=== PATIENT | male | born 1995 | race Caucasian/White ===

== ENCOUNTER → 2021-05-01 | Outpatient (CLI) | payer OTHER ==
--- NOTE | 2021-05-01 09:05 | XR ---
Orbits HISTORY: Metal in eye 3 views of the orbits Bone mineralization is maintained. Paranasal sinuses are well aerated. No radiopaque foreign body is evident. IMPRESSION: No radiopaque foreign body is evident within the orbits
--- NOTE | 2021-05-01 10:32 | MR ---
EXAMINATION TYPE: MR tspine/lspine wo con DATE OF EXAM: 05/01/2021 COMPARISON: Plain film 04/06/2021, CT from outside institution 02/11/2021 HISTORY: Prior LSP xrays on synapse, no prior TSP. back injury 5 months ago, pain left middle back TECHNIQUE: Multiplanar, multisequence imaging of the thoracic and lumbar spine is performed without I V contrast. FINDINGS: Thoracic spine MRI: Thoracic vertebral bodies show preserved height and alignment. There is a gentle spinal curvature. There is some loss of disc height and signal at T6-7, T7-8, T8-9. There is no signi ficant spinal stenosis or foraminal encroachment. Thoracic cord signal is maintained. There is left-s ided hydronephrosis as noted on prior CT. Posterior lung bases show no pleural effusion. T5-6: Small posterior right paracentral disc herniation causes mild anterolateral mass effect on the thecal sac. T6-7 there is a right posterior paracentral disc herniation present causing possible contact anterola terally on the thoracic cord. T7-8: A larger right posterior paracentral disc herniation contacts anterior thoracic cord, there may be some slight deformity present. T8-9: There is a left posterior paracentral disc herniation contacting the thoracic cord and likely c ausing some local mass effect. T9-10: Right lateral extension of disc protrusion encroaches minimally on the inferior aspect of the right neural foramen. Remaining levels are within normal limits within the thoracic spine. IMPRESSION: Multilevel disc herniations as described. Lumbar spine MRI:. Sagittal images of the lumbar spine show vertebral body heights and alignment to appear satisfactory. There is multilevel Schmorl's node formation. Loss of disc height signal is present at L4-5, L3-4. T he conus is normal noted at T12-L1. Axial images show no focal disc disease at L5-S1 aside for some facet arthropathy, there is motion pr esent. L4-5: There is a posterior broad-based disc bulge causing anterior mass effect on the thecal sac. Fac et arthropathy with hypertrophy ligamentum flavum is noted. There is only mild spinal stenosis. Circu mferential extension endplate disc complex encroaches minimally on the inferior aspect of the foramin a bilaterally. L3-4: Posterior extension endplate disc complex is present, there is posterior broad-based disc bulge causing anterior mass effect on the thecal sac, mild to moderate spinal stenosis. Circumferential ex tension endplate disc complex encroaches on the inferior aspect of the foramina bilaterally. There is some facet arthropathy change. Some posterior lateral mass effect on the thecal sac is noted. L2-3: Posterior broad-based disc bulge is mild. There is some mild facet arthropathy. No significant spinal stenosis or foraminal encroachment. L1-2: Mild facet arthropathy. No spinal stenosis or significant disc herniation. Left-sided hydroneph rosis is noted incidentally as on thoracic spine report. IMPRESSION: Degenerative disc disease as described. Left-sided hydronephrosis.
== END | disposition home or self-care (01) ==
LOC: RADMRIMAIN 08:16
PROVIDERS: ATTEND Orthopaedic Surgery
DX: M51.24 Other intervertebral disc displacement, thoracic region (principal); M51.36 Other intervertebral disc degeneration, lumbar region; Z01.89 Encounter for other specified special examinations
CPT/HCPCS: 70030; 72146; 72148

== ENCOUNTER 2021-06-12 19:44 | Inpatient (IN) | payer MEDICAID, OTHER ==
--- NOTE | 2021-06-12 21:08 | ED ---
Psych HPI <Abdirashid Garner - Last Filed: 06/12/21 21:40> - General Source: patient, family Mode of arrival: ambulatory <Sheryl Salas - Last Filed: 06/15/21 01:20> - General Stated Complaint: Mental Health - History of Present Illness Initial Comments: Lj is a 25yo presents the emergency department today for evaluation of depression and suicidal thoughts. Psychiatric history doesn't follow with any mental health specialist outpatient. Patient did have a back injury earlier this year and is suffering from chronic pain. Patient states that he she's been having thoughts of killing himself, his plan would be to cut himself. Patient reports he's and 20 out of 10 pain in his back and this is chronic. (Sheryl Salas) - Related Data Home Medications Medication Instructions Recorded Confirmed Gabapentin 300 mg PO TID 06/12/21 06/12/21 Meloxicam 15 mg PO DAILY 06/12/21 06/12/21 Allergies Allergy/AdvReac Type Severity Reaction Status Date / Time No Known Allergies Allergy Verified 06/12/21 22:14 Review of Systems ROS Other: All systems not noted in ROS Statement are negative. <Abdirashid Garner - Last Filed: 06/12/21 21:40> ROS Other: All systems not noted in ROS Statement are negative. <Sheryl Salas - Last Filed: 06/15/21 01:20> ROS Statement: Those systems with pertinent positive or pertinent negative responses have been documented in the HPI. Past Medical History Past Medical History: No Reported History History of Any Multi-Drug Resistant Organisms: None Reported Past Surgical History: No Surgical Hx Reported Past Psychological History: No Psychological Hx Reported Smoking Status: Current every day smoker Past Alcohol Use History: None Reported Past Drug Use History: Marijuana - Past Family History Mother Family Medical History: Hypertension <Sheryl Salas - Last Filed: 06/15/21 01:20> General Exam Limitations: no limitations <Sheryl Salas - Last Filed: 06/15/21 01:20> - General Exam Comments Initial Comments: Physical Exam GENERAL: Patient is well-developed and well-nourished. Patient is nontoxic and well-hydrated and is in no distress. HENT: Normocephalic, Atraumatic. EYES: PERRL, EOMI PULMONARY: Unlabored respirations. CARDIOVASCULAR: RRR Warm and well perfused extremities ABDOMEN: Non-distended SKIN: No rashes or bruising : Deferred NEUROLOGIC: Alert and oriented Normal speech Normal gait MUSCULOSKELETAL: Moving all extremities with no apparent injury PSYCHIATRIC Flat affect, delayed responses, suicidal thoughts and plan (Sheryl Salas) Course Vital Signs 06/12/21 21:03 Temperature 98.9 F Pulse Rate 96 Respiratory 18 Rate Blood Pressure 136/85 O2 Sat by Pulse 98 Oximetry Medical Decision Making - Lab Data Result diagrams: 06/14/21 06:47 06/14/21 06:47 <Sheryl Salas - Last Filed: 06/15/21 01:20> - Medical Decision Making Patient was seen and evaluated history is obtained from patient, patient is medically cleared for evaluation by psychiatric services. Pt willing to sign in voluntarily for psychiatric medical care (Sheryl Salas) - Lab Data Lab Results 06/12/21 06/12/21 06/12/21 Range/Units 21:22 21:23 21:23 Urine Color Yellow Urine Appearance Clear (Clear) Urine pH 6.5 (5.0-8.0) Ur Specific [place] 1.029 (1.001-1.035) Urine Protein 1+ H (Negative) Urine Glucose (UA) 4+ H (Negative) Urine Ketones Trace H (Negative) Urine Blood Negative (Negative) Urine Nitrite Negative (Negative) Urine Bilirubin Negative (Negative) Urine Urobilinogen 3.0 (<2.0) mg/dL Ur Leukocyte Esterase Negative (Negative) Urine RBC 1 (0-5) /hpf Urine WBC <1 (0-5) /hpf Ur Squamous Epith Cells <1 (0-4) /hpf Urine Mucus Rare H (None) /hpf Urine Opiates Screen Not Detected (NotDetected) Ur Oxycodone Screen Not Detected (NotDetected) Urine Methadone Screen Not Detected (NotDetected) Ur Propoxyphene Screen Not Detected (NotDetected) Ur Barbiturates Screen Not Detected (NotDetected) U Tricyclic Antidepress Not Detected (NotDetected) Ur Phencyclidine Scrn Not Detected (NotDetected) Ur Amphetamines Screen Not Detected (NotDetected) U Methamphetamines Scrn Not Detected (NotDetected) U Benzodiazepines Scrn Not Detected (NotDetected) Urine Cocaine Screen Not Detected (NotDetected) U Marijuana (THC) Screen Detected H (NotDetected) Coronavirus (PCR) Not Detected (Not Detectd) Disposition <Abdirashid Garner - Last Filed: 06/12/21 21:40> Is patient prescribed a controlled substance at d/c from ED?: No <Sheryl Salas - Last Filed: 06/15/21 01:20> Clinical Impression: Depression Disposition: TRANSFER TO PSYCH HOSP/UNIT Condition: Stable
[2021-06-12 21:56] LABS: Amphetamine Screen,Urine Not Detected (NotDetected); Barbiturate Screen,Urine Not Detected (NotDetected); Benzodiazepines Screen,Urine Not Detected (NotDetected); Cocaine Screen,Urine Not Detected (NotDetected); Methadone Screen, Urine Not Detected (NotDetected); Opiate Screen,Urine Not Detected (NotDetected); Oxycodone Screen, Urine Not Detected (NotDetected); Phencyclidine Screen,Urine Not Detected (NotDetected); Tricyclic Antidepressant,Urine Not Detected (NotDetected); Urn Cannabinoid Scrn Detected (NotDetected)
[2021-06-13] MEDS ORDERED: MAGNESIUM HYDROXIDE 2,400 MG/10 ML CUP PO PRN (00:28)
[2021-06-13] MEDS ORDERED: MAG HYDROX/AL HYDROX/SIMETH 30 ML CUP PO PRN (00:28)
[2021-06-13] MEDS ORDERED: LORazepam 1 MG TAB PO PRN (00:28)
[2021-06-13] MEDS ORDERED: ACETAMINOPHEN TAB 325 MG TAB PO PRN (00:28)
[2021-06-13 02:19] VITALS: RESP 16
[2021-06-13 03:15] LABS: Appearance,Urine Clear (Clear); Bilirubin,Urine Negative (Negative); Blood,Urine Negative (Negative); Color,Urine Yellow; Glucose,Urine (UA) 4+ (Negative); Ketones,Urine Trace (Negative); Leukocyte Esterase,Urine Negative (Negative); Mucus,Urine Rare /hpf; Nitrite,Urine Negative (Negative); PH, Urine 6.5 (5.0-8.0); Protein,Urine 1+ (Negative); RBC,Urine 1 /hpf (0-5); Specific Gravity,Urine 1.029 (1.001-1.035); Squamous Epithelial Cell,Urine <1 /hpf (0-4); WBC,Urine <1 /hpf (0-5)
--- NOTE | 2021-06-13 03:33 | P.PN ---
Progress Note - Text Progress Note Date: 06/13/21 Patient sleeping. Will attempt to see patient tomorrow.
[2021-06-13] MEDS: GABAPENTIN 300 MG CAP PO SCH ×3 (08:24→21:52)
[2021-06-13] MEDS: NICOTINE 21MG/24HR PATCH TRANSDERM SCH (08:24)
[2021-06-13] MEDS: MELOXICAM 7.5 MG TAB PO SCH (08:24)
[2021-06-13] MEDS: SERTRALINE 50 MG TAB PO SCH (13:02)
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
[2021-06-13] MEDS: traZODone HCL 50 MG TAB PO SCH (21:52)
--- NOTE | 2021-06-14 03:42 | P.CONS ---
History of Present Illness - Reason for Consult Consult date: 06/13/21 - History of Present Illness The patient is a 25-year-old male with a PMH of marijuana and tobacco abuse who presents to the emergency room with complaints of depression and suicidal ideation. The patient was admitted to mental health unit where he was seen and evaluated. The patient reports that he has been struggling with his social life including rejection from a recent love interest which has have been feeling very down and depressed. He reports wanting to hurt himself by cutting his wrists, at which time he approached his mother and told her that he needed help. He denied any physical complaints at the time of interview. He denied chest discomfort, shortness of breath or fever, chills, cough, nausea, vomiting, abdominal, diarrhea. Review of systems: Pertinent positives and negatives as discussed in HPI, a complete review of systems was performed and all other systems are negative. Physical examination: General: non toxic, no distress, appears at stated age, obese Derm: no unusual rashes/lesions no unusual ecchymoses, warm, dry Head: atraumatic, normocephalic, symmetric Eyes: EOMI, no lid lag, anicteric sclera, pupils equal round reactive to light ENT: Nose and ears atraumatic, no thrush, no pharyngeal erythema Neck: No thyromegaly, no cervical lymphadenopathy, trachea midline, supple Mouth: no lip lesion, mucus membranes moist Cardiovascular: S1S2 reg, no murmur, positive posterior tibial pulse bilateral, no edema, capillary refill less than 2 seconds Lungs: CTA bilateral, no rhonchi, no rales , no accessory muscle use Abdominal: soft, nontender to palpation, no guarding, no appreciable organomegaly, normal bowel sounds Ext: no gross muscle atrophy, muscle strength 5 out of 5 in all 4 extremities grossly, no contractures, Neuro: CN II-XI grossly intact, light touch intact all 4 extremities, finger to nose within normal limits, Psych: Alert, oriented, appropriate affect Assessment/plan Marijuana and tobacco abuse -Advised on the importance of cessation Depression and suicidal ideation -As per psychiatry Thank you for allowing us to participate in the care of this patient. We will follow peripherally. Do not hesitate to contact us with questions. Someone can be reached from the [facility] hospitalist group at all hours of the day at [phone]. Past Medical History Past Medical History: No Reported History History of Any Multi-Drug Resistant Organisms: None Reported Past Surgical History: No Surgical Hx Reported Past Anesthesia/Blood Transfusion Reactions: No Reported Reaction Past Psychological History: No Psychological Hx Reported Smoking Status: Current every day smoker Past Alcohol Use History: Occasional Additional Past Alcohol Use History / Comment(s): Pt states that he drinks heavily once a month. " I drink to get fucked up". Past Drug Use History: Marijuana - Past Family History Mother Family Medical History: Hypertension Medications and Allergies Home Medications Medication Instructions Recorded Confirmed Type Gabapentin 300 mg PO TID 06/12/21 06/12/21 History Meloxicam 15 mg PO DAILY 06/12/21 06/12/21 History Allergies Allergy/AdvReac Type Severity Reaction Status Date / Time No Known Allergies Allergy Verified 06/12/21 22:14 Physical Exam Vitals: Vital Signs Temp Pulse Resp BP Pulse Ox 06/13/21 01:24 98.6 F 98 16 126/74 97 Results Labs: Abnormal Lab Results - Last 24 Hours (Table) 06/12/21 Range/Units 21:23 Urine Protein 1+ H (Negative) Urine Glucose (UA) 4+ H (Negative) Urine Ketones Trace H (Negative) Urine Mucus Rare H (None) /hpf
[2021-06-14] MEDS: MELOXICAM 7.5 MG TAB PO SCH (08:53)
[2021-06-14] MEDS: NICOTINE 21MG/24HR PATCH TRANSDERM SCH (08:53)
[2021-06-14] MEDS: SERTRALINE 50 MG TAB PO SCH (08:53)
[2021-06-14] MEDS: GABAPENTIN 300 MG CAP PO SCH ×3 (08:53→20:56)
[2021-06-14 09:51] LABS: ALT 40 U/L (4-49); AST 22 U/L (17-59); African American GFR (CKD) >90 (>60 ml/min/1.73 sqM); Albumin 4.6 g/dL (3.5-5.0); Alkaline Phosphatase 41 U/L (38-126); Anion Gap 10 mmol/L; Blood Urea Nitrogen 13 mg/dL (9-20); Calcium 9.6 mg/dL (8.4-10.2); Carbon Dioxide 29 mmol/L (22-30); Chloride 101 mmol/L (98-107); Glucose 161 mg/dL (74-99); Non-African American GFR(CKD) >90 (>60 ml/min/1.73 sqM); Potassium 4.2 mmol/L (3.5-5.1); Sodium 140 mmol/L (137-145); Total Bilirubin 0.9 mg/dL (0.2-1.3); Total Protein 7.5 g/dL (6.3-8.2)
[2021-06-14 10:00] LABS: Basophils # (A) 0.1 k/uL (0-0.2); Basophils % (A) 1 %; Eosinophils # (A) 0.1 k/uL (0-0.7); Eosinophils % (A) 1 %; HCT 52.1 % (39.0-53.0); HGB 17.5 gm/dL (13.0-17.5); Lymphocytes # (A) 4.3 k/uL (1.0-4.8); Lymphocytes % (A) 41 %; MCH 29.9 pg (25.0-35.0); MCHC 33.6 g/dL (31.0-37.0); MCV 88.8 fL (80.0-100.0); Mean Platelet Volume 8.3; Monocytes # (A) 0.7 k/uL (0-1.0); Monocytes % (A) 7 %; Neutrophils % (A) 48 %; Platelet Count 257 k/uL (150-450); RBC 5.86 m/uL (4.30-5.90); RDW 12.1 % (11.5-15.5); WBC 10.4 k/uL (3.8-10.6)
--- NOTE | 2021-06-14 10:34 | P.PN ---
Progress Note - Text Progress Note Date: 06/14/21 Interval History: Patient was seen wandering the hallways and was directable and agreeable to alison barfield with bond writer in the office. Patient appeared to have an improvement in his affect today and states that he feels "brighter". He claims that his mood has been gradually improving and feels less anxious today. He states that he has been going to groups and participating in this as he can. He states that he hopes that he still has a job when he is discharged from the hospital. He was very indifferent about going home and feels that he will just "curl up back into bed and feel suicidal again". He states that he has been eating fairly. He claims that he was having a difficult time sleeping last night and initially refused the trazodone however went back to get an Ativan hours later and fell back asleep. Clin Tech spoke with patient about trying to use the trazodone instead for tonight. At this time patient denies any suicidal or homical ideations, intent or plan. Patient denies any auditory, visual hallucinations and denies any paranoia or delusions. Patient denies any side effects from the medications and has been compliant with meds. Mental Status Exam: General Appearance: Patient appears to be overweight, wearing glasses, unshaven, older than stated age is alert, directable, and attempts to cooperate. Patient appears to have improving hygiene and grooming. Behavior: Patient is seated without any agitated behavior. Speech: Patient's speech is fluent and nonpressured. Mood/Affect: Patient reports their mood is improving mildly, affect is congruent and constricted. Suicidality/Homicidality: Patient denies having any homicidal ideation intent or plan. Denies any suicidal ideations intent or plan Perceptions: Patient denies any visual hallucinations and denies any auditory hallucinations Though content/process: There is no evidence of any delusional thought content and thought process is linear and goal-directed. Memory and concentration: AOX3, grossly intact for the purposes of this session. Judgment and insight: Improving mildly Assessment Major depressive disorder, severe, without psychotic features PTSD cannabis use disorder nicotine dependence Plan: -Patient continues to meet criteria for inpatient psychiatric admission for symptom stabilization and safety. Patient has signed adult voluntary form and medication consent and was placed in patient's chart. -Medications: Continue Zoloft 50 mg daily for mood/anxiety. Continue with trazodone 50 mg daily at bedtime for insomnia/mood. -When necessary Ativan and Haldol for agitation/aggression. -NRT - nicotine patch -SW on board for discharge planning. Encouraged the patient to participate in [place]. Likely discharge either tomorrow or back home.
[2021-06-14 14:49] VITALS: BMI 36.0
[2021-06-14] MEDS: traZODone HCL 50 MG TAB PO SCH (21:57)
[2021-06-15 06:36] VITALS: BP 135/79; PULSE 65; TEMP 97
[2021-06-15] MEDS: MELOXICAM 7.5 MG TAB PO SCH (08:29)
[2021-06-15] MEDS: NICOTINE 21MG/24HR PATCH TRANSDERM SCH (08:29)
[2021-06-15] MEDS: GABAPENTIN 300 MG CAP PO SCH (08:29)
[2021-06-15] MEDS: SERTRALINE 50 MG TAB PO SCH (08:30)
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
== END 2021-06-15 14:00 | disposition home or self-care (01) | DRG 885 ==
LOC: EC 19:44 → 3MHU 06-13 00:14
PROVIDERS: ADMIT Psychiatry & Neurology Psychiatry; ATTEND Psychiatry & Neurology Psychiatry
DX: F33.2 Major depressive disorder, recurrent severe without psychotic features (principal); F43.10 Post-traumatic stress disorder, unspecified; G47.00 Insomnia, unspecified; G89.29 Other chronic pain; M54.9 Dorsalgia, unspecified; F12.10 Cannabis abuse, uncomplicated; F17.210 Nicotine dependence, cigarettes, uncomplicated; Z79.1 Long term (current) use of non-steroidal anti-inflammatories (NSAID); Z79.899 Other long term (current) drug therapy; Z81.8 Family history of other mental and behavioral disorders; Z82.49 Family history of ischemic heart disease and other diseases of the circulatory system; Z91.51 Personal history of suicidal behavior; E66.3 Overweight; Z68.36 Body mass index [BMI] 36.0-36.9, adult; Z20.822 Contact with and (suspected) exposure to COVID-19
CPT/HCPCS: 80053; 80306; 81001; 82075; 83036; 84443; 85025; 87635; 99285

== ENCOUNTER 2022-02-05 00:13 | Emergency (ER) | payer OTHER ==
[2022-02-05 00:21] VITALS: TEMP 98.6
[2022-02-05 02:01] LABS: Appearance,Urine Clear (Clear); Bilirubin,Urine Negative (Negative); Blood,Urine Negative (Negative); Color,Urine Yellow; Glucose,Urine (UA) 4+ (Negative); Ketones,Urine Negative (Negative); Leukocyte Esterase,Urine Negative (Negative); Mucus,Urine Rare /hpf; Nitrite,Urine Negative (Negative); PH, Urine 5.5 (5.0-8.0); Protein,Urine 1+ (Negative); Specific Gravity,Urine 1.029 (1.001-1.035); Squamous Epithelial Cell,Urine <1 /hpf (0-4); Urobilinogen,Urine <2.0 mg/dL (<2.0); WBC,Urine 1 /hpf (0-5)
[2022-02-05] MEDS ORDERED: SODIUM CHLORIDE 0.9% 1,000 ML IV STA ×2 (02:10)
[2022-02-05] MEDS ORDERED: MORPHINE SULFATE 4 MG/ML SYRINGE IVP STA (03:03)
--- NOTE | 2022-02-05 03:17 | ED ---
Abdominal Pain HPI - General Chief Complaint: Abdominal Pain Stated Complaint: Left Side Pain Time Seen by Provider: 02/05/22 02:06 Source: patient Mode of arrival: ambulatory Limitations: no limitations - Related Data Previous Rx's Medication Instructions Recorded Acetaminophen Tab [Tylenol] 650 mg PO Q4HR PRN tab 06/15/21 Gabapentin 300 mg PO TID 3 Days #9 cap 06/15/21 Meloxicam 15 mg PO DAILY 30 Days tab 06/15/21 Nicotine 21Mg/24Hr Patch [Habitrol] 1 patch TRANSDERM DAILY 14 Days 06/15/21 patch Sertraline [Zoloft] 50 mg PO DAILY 30 Days tab 06/15/21 traZODone HCL [Desyrel] 50 mg PO HS 30 Days tab 06/15/21 metFORMIN HCL [Glucophage] 500 mg PO BID #60 tab 02/05/22 Allergies Allergy/AdvReac Type Severity Reaction Status Date / Time No Known Allergies Allergy Verified 02/05/22 00:21 Review of Systems ROS Statement: Those systems with pertinent positive or pertinent negative responses have been documented in the HPI. ROS Other: All systems not noted in ROS Statement are negative. Past Medical History Past Medical History: No Reported History History of Any Multi-Drug Resistant Organisms: None Reported Past Surgical History: No Surgical Hx Reported Past Anesthesia/Blood Transfusion Reactions: No Reported Reaction Past Psychological History: Depression Smoking Status: Current every day smoker Past Alcohol Use History: None Reported Past Drug Use History: Marijuana - Past Family History Mother Family Medical History: Hypertension General Exam Limitations: no limitations Course Vital Signs 02/05/22 02/05/22 00:18 04:39 Temperature 98.6 F Pulse Rate 98 78 Respiratory 20 18 Rate Blood Pressure 148/94 141/80 O2 Sat by Pulse 100 100 Oximetry Medical Decision Making - Lab Data Lab Results 02/05/22 02/05/22 Range/Units 00:50 04:43 POC Glucose (mg/dL) 219 H (70-110) mg/dL POC Glu Fence Post Driver ID Patricio Khan Urine Color Yellow Urine Appearance Clear (Clear) Urine pH 5.5 (5.0-8.0) Ur Specific [place] 1.029 (1.001-1.035) Urine Protein 1+ H (Negative) Urine Glucose (UA) 4+ H (Negative) Urine Ketones Negative (Negative) Urine Blood Negative (Negative) Urine Nitrite Negative (Negative) Urine Bilirubin Negative (Negative) Urine Urobilinogen <2.0 (<2.0) mg/dL Ur Leukocyte Esterase Negative (Negative) Urine WBC 1 (0-5) /hpf Ur Squamous Epith Cells <1 (0-4) /hpf Urine Mucus Rare H (None) /hpf Disposition Clinical Impression: Abdominal pain, Left flank pain, Hydronephrosis, left, Diabetes mellitus, new onset Disposition: HOME SELF-CARE Condition: Good Instructions (If sedation given, give patient instructions): Flank Pain (ED), Type 2 Diabetes in Adults: New Diagnosis (DC) Prescriptions: metFORMIN HCL [Glucophage] 500 mg PO BID #60 tab Is patient prescribed a controlled substance at d/c from ED?: No Referrals: Jassi Higgins MD [STAFF PHYSICIAN] - 1-2 days
--- NOTE | 2022-02-05 03:49 | CT ---
EXAMINATION TYPE: CT abdomen pelvis wo con DATE OF EXAM: 02/05/2022 COMPARISON: 02/11/2021 HISTORY: LT SIDED ABD PAIN CT DLP: 890.3 mGycm Automated exposure control for dose reduction was used. Exam performed from the diaphragm to the floor the pelvis with no contrast. Lung bases are clear. No pleural effusion. Heart size is normal. No pericardial effusion. There is diffuse fatty infiltration of the liver. Spleen is intact. Stomach is intact. No pancreatic mass. There is no adrenal mass. Kidneys of normal size. There is left-sided hydronephrosis. There are multi ple bilateral renal calculi. The left ureter is not dilated. No evidence of ureteral calculus. Bladde r distends smoothly. Appendix is posterior and appears normal. No retroperitoneal adenopathy. There i s no inguinal hernia. No free fluid in the pelvis. There is no mesenteric edema. No ascites or free air. No sign of a bowel obstruction. The lumbar vert ebrae have normal alignment. No compression fracture. Posterior elements are intact. The bony pelvis is intact. Hip joints are intact. IMPRESSION: Left-sided hydronephrosis. No ureteral calculi seen. This could relate to previous episode of obstruc tion. Left kidney not changed compared to old exam. There are bilateral multiple renal calculi. Meghan l appendix. Fatty liver.
[2022-02-05 04:40] VITALS: BP 141/80; PULSE 78; RESP 18
[2022-02-05] MEDS ORDERED: metFORMIN 500 MG TAB PO STA (04:44)
[2022-02-05 04:45] LABS: Glucose,Whole Blood 219 mg/dL (70-110)
== END 2022-02-05 04:53 | disposition home or self-care (01) ==
LOC: EC 00:13
DX: N13.2 Hydronephrosis with renal and ureteral calculous obstruction (principal); E11.9 Type 2 diabetes mellitus without complications; F17.200 Nicotine dependence, unspecified, uncomplicated
CPT/HCPCS: 36415; 74176; 81001; 99284

== ENCOUNTER 2023-08-23 12:44 | Emergency (ER) | payer SELFPAY ==
[2023-08-23] MEDS ORDERED: ONDANSETRON 4 MG/2 ML VIAL IVP STA (13:43)
[2023-08-23] MEDS ORDERED: SODIUM CHLORIDE 0.9% 1,000 ML IV STA (13:43)
[2023-08-23] MEDS ORDERED: HYDROmorphone 0.5 MG/0.5 ML SYRINGE IVP STA (13:43)
--- NOTE | 2023-08-23 13:54 | ED ---
Abdominal Pain HPI - General Chief Complaint: Abdominal Pain Stated Complaint: left abdominal back pain Time Seen by Provider: 08/23/23 13:30 Source: patient, family, RN notes reviewed Mode of arrival: ambulatory Limitations: no limitations - History of Present Illness Initial Comments: Patient is a 28-year-old male presented to ER with a chief complaint of left flank pain. Patient states for the past 2 to 3 days he has been having left flank pain. He states the pain is worse when he moves or touches the area. Patient does have a history of kidney stones. He has tried taking [id number] medication without relief. Patient denies any urinary complaints, constipation/diarrhea, fevers, chills, scrotal pain. - Related Data Previous Rx's Medication Instructions Recorded Acetaminophen Tab [Tylenol] 650 mg PO Q4HR PRN tab 06/15/21 Gabapentin 300 mg PO TID 3 Days #9 cap 06/15/21 Meloxicam 15 mg PO DAILY 30 Days tab 06/15/21 Nicotine 21Mg/24Hr Patch [Habitrol] 1 patch TRANSDERM DAILY 14 Days 06/15/21 patch Sertraline [Zoloft] 50 mg PO DAILY 30 Days tab 06/15/21 traZODone HCL [Desyrel] 50 mg PO HS 30 Days tab 06/15/21 metFORMIN HCL [Glucophage] 500 mg PO BID #60 tab 02/05/22 Allergies Allergy/AdvReac Type Severity Reaction Status Date / Time No Known Allergies Allergy Verified 02/05/22 00:21 Review of Systems ROS Statement: Those systems with pertinent positive or pertinent negative responses have been documented in the HPI. ROS Other: All systems not noted in ROS Statement are negative. Past Medical History Past Medical History: No Reported History Additional Past Medical History / Comment(s): kidney stone History of Any Multi-Drug Resistant Organisms: None Reported Past Surgical History: Orthopedic Surgery Past Anesthesia/Blood Transfusion Reactions: No Reported Reaction Past Psychological History: Depression Smoking Status: Current every day smoker Past Alcohol Use History: None Reported Past Drug Use History: Marijuana - Past Family History Mother Family Medical History: Hypertension General Exam Limitations: no limitations General appearance: alert, in no apparent distress Head exam: Present: atraumatic, normocephalic, normal inspection Respiratory exam: Present: normal lung sounds bilaterally. Absent: respiratory distress, wheezes, rales, rhonchi, stridor Cardiovascular Exam: Present: regular rate, normal rhythm, normal heart sounds. Absent: systolic murmur, diastolic murmur, rubs, gallop, clicks GI/Abdominal exam: Present: soft, normal bowel sounds. Absent: distended, tenderness, guarding, rebound, rigid Back exam: Present: normal inspection, CVA tenderness (L) Neurological exam: Present: alert, oriented X3, CN II-XII intact Psychiatric exam: Present: normal affect, normal mood Skin exam: Present: warm, dry, intact, normal color. Absent: rash Course Vital Signs 08/23/23 08/23/23 13:13 15:23 Temperature 99.3 F 98.2 F Pulse Rate 98 79 Respiratory 16 18 Rate Blood Pressure 122/73 131/80 O2 Sat by Pulse 98 100 Oximetry Medical Decision Making - Medical Decision Making Was pt. sent in by a medical professional or institution ([facility], [facility], urgent care, hospital, or [facility]...) When possible be specific @ -No Did you speak to anyone other than the patient for history (EMS, parent, family, police, friend...)? What history was obtained from this source @ -Mother providing some past medical history and HPI. Did you review nursing and triage notes (agree or disagree)? Why? @ -I reviewed and agree with nursing and triage notes Were old charts reviewed (outside hosp., previous admission, EMS record, old EKG, old radiological studies, urgent care reports/EKG's, [facility] records)? Report findings @ -No old charts were reviewed Differential Diagnosis (chest pain, altered mental status, abdominal pain women, abdominal pain men, vaginal bleeding, weakness, fever, dyspnea, syncope, headache, dizziness, GI bleed, back pain, seizure, CVA, palpatations, mental health, musculoskeletal)? @ -Differential Abdominal Pain Men:Appendicitis, cholecystitis, diverticulosis, ischemic bowel, pancreatitis, hepatitis, UTI, gastroenteritis, AAA, incarcerated hernia, bowel obstruction, constipation, inflammatory bowel, hepatitis, peptic ulcer disease, splenic infarction, perforated viscus, testicular torsion, this is not meant to be an all-inclusive list EKG interpreted by me (3pts min.). @ -None done X-rays interpreted by me (1pt min.). @ -None done CT interpreted by me (1pt min.). @ -CT abdomen pelvis shows left hydronephrosis without signs of calculi. U/S interpreted by me (1pt. min.). @ -None done What testing was considered but not performed or refused? (CT, X-rays, U/S, labs)? Why? @ -None What meds were considered but not given or refused? Why? @ -None Did you discuss the management of the patient with other professionals (professionals i.e. , PA, [employer], lab, RT, psych nurse, manager social services, glove sewer, teacher, fiscal officer, shoe caser)? Give summary @ -No Was smoking cessation discussed for >3mins.? @ -No Was critical care preformed (if so, how long)? @ -No Were there social determinants of health that impacted care today? How? (Homelessness, low income, unemployed, alcoholism, drug addiction, t ransportation, low edu. Level, literacy, decrease access to med. care, long term, rehab)? @ -Decreased access to medical care Was there de-escalation of care discussed even if they declined (Discuss DNR or withdrawal of care, Hospice)? DNR status @ -No What co-morbidities impacted this encounter? (DM, HTN, Smoking, COPD, CAD, Cancer, CVA, ARF, Chemo, Hep., AIDS, mental health diagnosis, sleep apnea, morbid obesity)? @ -Diabetes mellitus, obesity Was patient admitted / discharged? Hospital course, mention meds given and route, prescriptions, significant lab abnormalities, going to OR and other pe rtinent info. @ -Discharge. Patient is a 28-year-old male presenting to the ER with a chief complaint of left flank pain. Vitals stable. History and physical exam were completed. Patient had left CVA tenderness. No signs of acute distress. Labs obtained in ER unremarkable besides glucose was elevated at 253. Urine showed 4+ glucose and trace ketones. Due to concern of nephrolithiasis CT was performed. CT showed evidence of hydronephrosis with no calculi present. Compared to prior CTs this was unchanged. Patient did receive IV Dilaudid, Zofran and IV fluids in the ER. Imaging and lab results were discussed with patient. Advised him to follow-up with urology to further investigate hydronephrosis. I also advised patient to follow-up with PCP. Patient states he has not had a PCP in many years. Return parameters were discussed. Patient be discharged stable condition with follow-up to PCP. Referrals were given. Patient expressed understanding and agreement with care plan. Undiagnosed new problem with uncertain prognosis? @ -No Drug Therapy requiring intensive monitoring for toxicity (Heparin, Nitro, Insulin, Cardizem)? @ -No Were any procedures done? @ -No Diagnosis/symptom? @ -Hydronephrosis/diabetes mellitus Acute, or Chronic, or Acute on Chronic? @ -Acute Uncomplicated (without systemic symptoms) or Complicated (systemic symptoms)? @ -Uncomplicated Side effects of treatment? @ -No Exacerbation, Progression, or Severe Exacerbation? @ -No Poses a threat to life or bodily function? How? (Chest pain, [place], VA, pneumonia, PE, COPD, DKA, ARF, appy, cholecystitis, CVA, Diverticulitis, Homicidal, Suicidal, threat to staff... and all critical care pts) @ -No - Lab Data Result diagrams: 08/23/23 13:50 08/23/23 13:50 Lab Results 08/23/23 08/23/23 08/23/23 Range/Units 13:50 13:50 13:50 WBC 9.3 (3.8-10.6) k/uL RBC 5.61 (4.30-5.90) m/uL Hgb 16.5 (13.0-17.5) gm/dL Hct 48.5 (39.0-53.0) % MCV 86.4 (80.0-100.0) fL MCH 29.5 (25.0-35.0) pg MCHC 34.1 (31.0-37.0) g/dL RDW 12.6 (11.5-15.5) % Plt Count 248 (150-450) k/uL MPV 7.3 Sodium 142 (137-145) mmol/L Potassium 4.3 (3.5-5.1) mmol/L Chloride 106 (98-107) mmol/L Carbon Dioxide 26 (22-30) mmol/L Anion Gap 10 mmol/L BUN 12 (9-20) mg/dL Creatinine 0.58 L (0.66-1.25) mg/dL Est GFR (CKD-EPI)AfAm >90 (>60 ml/min/1.73 sqM) Est GFR (CKD-EPI)NonAf >90 (>60 ml/min/1.73 sqM) Glucose 253 H (74-99) mg/dL Plasma Lactic Acid Van (0.7-2.0) mmol/L Calcium 9.5 (8.4-10.2) mg/dL Total Bilirubin 0.6 (0.2-1.3) mg/dL AST 22 (17-59) U/L ALT 45 (4-49) U/L Alkaline Phosphatase 54 (38-126) U/L Total Protein 7.6 (6.3-8.2) g/dL Albumin 4.7 (3.5-5.0) g/dL Urine Color Light Yellow Urine Appearance Clear (Clear) Urine pH 6.0 (5.0-8.0) Ur Specific Goff 1.035 (1.001-1.035) Urine Protein Trace H (Negative) Urine Glucose (UA) 4+ H (Negative) Urine Ketones Trace H (Negative) Urine Blood Negative (Negative) Urine Nitrite Negative (Negative) Urine Bilirubin Negative (Negative) Urine Urobilinogen <2.0 (<2.0) mg/dL Ur Leukocyte Esterase Negative (Negative) 08/23/23 Range/Units 13:50 WBC (3.8-10.6) k/uL RBC (4.30-5.90) m/uL Hgb (13.0-17.5) gm/dL Hct (39.0-53.0) % MCV (80.0-100.0) fL MCH (25.0-35.0) pg MCHC (31.0-37.0) g/dL RDW (11.5-15.5) % Plt Count (150-450) k/uL MPV Sodium (137-145) mmol/L Potassium (3.5-5.1) mmol/L Chloride (98-107) mmol/L Carbon Dioxide (22-30) mmol/L Anion Gap mmol/L BUN (9-20) mg/dL Creatinine (0.66-1.25) mg/dL Est GFR (CKD-EPI)AfAm (>60 ml/min/1.73 sqM) Est GFR (CKD-EPI)NonAf (>60 ml/min/1.73 sqM) Glucose (74-99) mg/dL Plasma Lactic Acid Van 1.3 (0.7-2.0) mmol/L Calcium (8.4-10.2) mg/dL Total Bilirubin (0.2-1.3) mg/dL AST (17-59) U/L ALT (4-49) U/L Alkaline Phosphatase (38-126) U/L Total Protein (6.3-8.2) g/dL Albumin (3.5-5.0) g/dL Urine Color Urine Appearance (Clear) Urine pH (5.0-8.0) Ur Specific Goff (1.001-1.035) Urine Protein (Negative) Urine Glucose (UA) (Negative) Urine Ketones (Negative) Urine Blood (Negative) Urine Nitrite (Negative) Urine Bilirubin (Negative) Urine Urobilinogen (<2.0) mg/dL Ur Leukocyte Esterase (Negative) - Radiology Data Radiology results: report reviewed, image reviewed Disposition Clinical Impression: Hydronephrosis, Diabetes mellitus Disposition: HOME SELF-CARE Condition: Stable Instructions (If sedation given, give patient instructions): Hydronephrosis (ED), Type 2 Diabetes Management for Adults (ED) Additional Instructions: Please follow-up with primary care physician in the next 1 to 2 days. Please follow-up with urology as well. Return to ER for any new or worsening symptoms. Is patient prescribed a controlled substance at d/c from ED?: No Referrals: None,Stated [Primary Care Provider] - 1-2 days Danilo Lyons MD [STAFF PHYSICIAN] - 1-2 days Gita Dorman MD [STAFF PHYSICIAN] - 1-2 days Simeon Vaca MD [STAFF PHYSICIAN] - 1-2 days Ashley Elizabeth DO [REFERRING] - 1-2 days Patricia Rucker DO [REFERRING] - 1-2 days Elpidio Head MD [STAFF PHYSICIAN] - 1-2 days Elfego Christine DO [STAFF PHYSICIAN] - 1-2 days Carlos Tapia MD [STAFF PHYSICIAN] - 1-2 days Jassi Higgins MD [STAFF PHYSICIAN] - 1-2 days Ministerio Tucker MD [STAFF PHYSICIAN] - 1-2 days Time of Disposition: 15:12
[2023-08-23 14:22] LABS: HCT 48.5 % (39.0-53.0); HGB 16.5 gm/dL (13.0-17.5); MCH 29.5 pg (25.0-35.0); MCHC 34.1 g/dL (31.0-37.0); MCV 86.4 fL (80.0-100.0); Mean Platelet Volume 7.3; Platelet Count 248 k/uL (150-450); RBC 5.61 m/uL (4.30-5.90); RDW 12.6 % (11.5-15.5); WBC 9.3 k/uL (3.8-10.6)
[2023-08-23 14:23] LABS: Appearance,Urine Clear (Clear); Bilirubin,Urine Negative (Negative); Blood,Urine Negative (Negative); Color,Urine Light Yellow; Glucose,Urine (UA) 4+ (Negative); Ketones,Urine Trace (Negative); Leukocyte Esterase,Urine Negative (Negative); Nitrite,Urine Negative (Negative); Protein,Urine Trace (Negative); Specific Gravity,Urine 1.035 (1.001-1.035); Urobilinogen,Urine <2.0 mg/dL (<2.0)
[2023-08-23 14:38] LABS: ALT 45 U/L (4-49); AST 22 U/L (17-59); African American GFR (CKD) >90 (>60 ml/min/1.73 sqM); Albumin 4.7 g/dL (3.5-5.0); Alkaline Phosphatase 54 U/L (38-126); Anion Gap 10 mmol/L; Blood Urea Nitrogen 12 mg/dL (9-20); Calcium 9.5 mg/dL (8.4-10.2); Carbon Dioxide 26 mmol/L (22-30); Chloride 106 mmol/L (98-107); Glucose 253 mg/dL (74-99); Non-African American GFR(CKD) >90 (>60 ml/min/1.73 sqM); Potassium 4.3 mmol/L (3.5-5.1); Sodium 142 mmol/L (137-145); Total Bilirubin 0.6 mg/dL (0.2-1.3); Total Protein 7.6 g/dL (6.3-8.2)
--- NOTE | 2023-08-23 14:59 | CT ---
EXAMINATION TYPE: CT abdomen pelvis wo con DATE OF EXAM: 08/23/2023 COMPARISON: 02/05/2022 INDICATION: flank pain DLP: 728.4 mGycm, Automated exposure control for dose reduction was used. CONTRAST: 0 mL of Isovue 300. Study performed without Oral Contrast TECHNIQUE: Axial images were obtained from above the diaphragm to the pubic rami in the axial plane a t 5 mm thick sections. Reconstructed images are reviewed on the computer in the coronal plane. FINDINGS: Limited CT sections are obtained the lung bases. The lung bases are clear. CT ABDOMEN: Liver: Mild fatty infiltration is to the liver. Spleen: Normal Pancreas: Normal Adrenal glands: The adrenal glands are normal. Gallbladder: Normal Kidneys: No masses are evident. Her some mild prominence of the left renal collecting system. No obst ructing etiology is identified. The ureter appears normal. No cysts are present. No renal stones are evident. No ureteral stones identified. Aorta: Vascular calcification is within the aorta. Inferior vena cava: Normal. CT PELVIS: Loops of bowel within the abdomen and pelvis are normal. The study is performed without oral cont rast. Appendix: Normal as visualized. Urinary bladder: Normal. Genitourinary structures: Prostate is normal Osseous structures: No suspicious lytic or sclerotic lesions. IMPRESSION: 1. Left hydronephrosis of uncertain etiology. No renal or ureteral stones are identified. 2. Mild fatty infiltration to the liver.
[2023-08-23 15:49] VITALS: BP 131/80; PULSE 79; RESP 18; TEMP 98.2
== END 2023-08-23 15:23 | disposition home or self-care (01) ==
LOC: EC 12:44
DX: N13.30 Unspecified hydronephrosis (principal); E11.9 Type 2 diabetes mellitus without complications; E66.9 Obesity, unspecified; F17.200 Nicotine dependence, unspecified, uncomplicated; F12.90 Cannabis use, unspecified, uncomplicated; Z68.37 Body mass index [BMI] 37.0-37.9, adult; Z87.442 Personal history of urinary calculi
CPT/HCPCS: 36415; 80053; 83605; 85027; 81003; 74176; 99284; 96374; 96375; 96361; J2405; J1170